=== PATIENT | female | born 1945 | race Caucasian/White ===

== ENCOUNTER 2017-02-01 11:03 | Outpatient (CLI) | payer OTHER ==
[2017-02-01 12:10] LABS: ALT (SGPT) 11 U/L (8-55); AST (SGOT) 17 U/L (5-34); Alkaline Phosphatase 86 U/L (40-150); Anion Gap 15 mmol/L (10-20); BUN (Urea Nitrogen) 16 mg/dL (9.8-20.1); Bilirubin, Total 0.8 mg/dL (0.2-1.2); Calc. Creatinine Clearance 0 mL/min (70-130); Calcium 10.6 mg/dL (7.8-10.44); Carbon Dioxide 24 mmol/L (23-31); Chloride 102 mmol/L (98-107); Estimated GFR-MDRD 48; Glucose 90 mg/dL (83-110); Potassium 4.2 mmol/L (3.5-5.1); Sodium 137 mmol/L (136-145)
[2017-02-01 13:26] LABS: #Eosinphils 0.2 thou/uL (0.0-0.7); #Lymphocytes 1.3 thou/uL (1.20-3.40); #Monocytes 0.6 thou/uL (0.11-0.59); #Neutrophils 10.2 thou/uL (1.40-6.50); %Basophils 0.3 % (0.0-1.0); %Eosinophils 1.2 % (0.0-10.0); %Lymphocytes 10.5 % (21.0-51.0); %Monocytes 4.9 % (0.0-10.0); Hemoglobin 12.9 g/dL (12.0-16.0); Mean Corpuscular HGB CONC 33.6 g/dL (32.0-36.0); Mean Corpuscular Hemoglobin 30.2 pg (27.0-31.0); Mean Corpuscular Volume 89.7 fl (81.0-99.0); Mean Platelet Volume 11.9 fL (7.4-10.4); RBC Distribution Width 11.9 % (11.5-14.5); Red Blood Cell (RBC) Count 4.27 mill/uL (4.20-5.40); White Blood Cell (WBC) Count 12.3 thou/uL (4.8-10.8)
== END 2017-02-01 11:04 | disposition home or self-care (01) ==
LOC: NAV LAB 11:03
PROVIDERS: ATTEND Family Medicine
DX: K57.92 Diverticulitis of intestine, part unspecified, without perforation or abscess without bleeding (principal)
CPT/HCPCS: 36415; 80053; 85025

== ENCOUNTER 2017-06-12 15:00 | Outpatient (CLI) | payer OTHER ==
--- NOTE | 2017-06-12 20:28 | RAD ---
FOUR VIEWS OF THE LEFT KNEE: 06/12/17 INDICATION: Left knee pain. COMPARISON: None. FINDINGS: There is mild osteophytosis involving the major compartments of the left knee. This is most prominen t within the patellofemoral compartment. No definite acute fracture or subluxation is evident. There is soft tissue swelling seen involving the anterior aspect of the left thigh which may reflect foca l area of contusion. Recommend correlation. IMPRESSION: 1. Mild osteoarthrosis of the left knee. 2. Soft tissue swelling involving the anterior aspect of the left thigh. POS: [facility]
== END 2017-06-12 15:01 | disposition home or self-care (01) ==
LOC: NAV RAD 15:00
PROVIDERS: ATTEND Family Medicine
DX: M25.562 Pain in left knee (principal); M17.12 Unilateral primary osteoarthritis, left knee

== ENCOUNTER 2018-01-07 11:27 | Emergency (ER) | payer MEDICARE | END 2018-01-07 12:32 | disposition home or self-care (01) | LOC: NAV ERS 11:27 | DX: R04.0 Epistaxis (principal); F41.9 Anxiety disorder, unspecified; H11.32 Conjunctival hemorrhage, left eye; E78.5 Hyperlipidemia, unspecified; I10 Essential (primary) hypertension; Z79.899 Other long term (current) drug therapy | CPT/HCPCS: 93005 ==

== ENCOUNTER 2018-02-12 21:48 | Emergency (ER) | payer MEDICARE ==
[2018-02-12 22:24] LABS: #Eosinphils 0.2 thou/uL (0.0-0.7); #Lymphocytes 1.2 thou/uL (1.20-3.40); #Monocytes 0.6 thou/uL (0.11-0.59); #Neutrophils 11.3 thou/uL (1.40-6.50); %Basophils 0.3 % (0.0-1.0); %Eosinophils 1.6 % (0.0-10.0); %Monocytes 4.8 % (0.0-10.0); %Neutrophils 84.4 % (42.0-75.0); Hemoglobin 12.1 g/dL (12.0-16.0); Mean Corpuscular HGB CONC 33.3 g/dL (32.0-36.0); Mean Corpuscular Hemoglobin 29.5 pg (27.0-31.0); Mean Corpuscular Volume 88.6 fL (78.0-98.0); Mean Platelet Volume 9.2 fL (7.4-10.4); Platelet Count 211 thou/uL (130-400); RBC Distribution Width 11.9 % (11.5-14.5); Red Blood Cell (RBC) Count 4.11 mill/uL (4.20-5.40); White Blood Cell (WBC) Count 13.3 thou/uL (4.8-10.8)
[2018-02-12 22:46] LABS: ALT (SGPT) 19 U/L (8-55); AST (SGOT) 21 U/L (5-34); Alkaline Phosphatase 99 U/L (40-150); Anion Gap 14 mmol/L (10-20); BUN (Urea Nitrogen) 21 mg/dL (9.8-20.1); Bilirubin, Total 0.4 mg/dL (0.2-1.2); Calc. Creatinine Clearance 0 mL/min (70-130); Calcium 9.7 mg/dL (7.8-10.44); Carbon Dioxide 25 mmol/L (23-31); Chloride 104 mmol/L (98-107); Estimated GFR-MDRD 60; Globulin 2.6 g/dL (2.4-3.5); Glucose 113 mg/dL (83-110); Potassium 3.6 mmol/L (3.5-5.1); Protein, Total 6.6 g/dL (6.0-8.3); Sodium 139 mmol/L (136-145)
== END 2018-02-12 23:00 | disposition home or self-care (01) ==
LOC: NAV ERS 21:48
DX: K92.1 Melena (principal); I10 Essential (primary) hypertension; E78.5 Hyperlipidemia, unspecified; Z79.899 Other long term (current) drug therapy; Z79.82 Long term (current) use of aspirin
CPT/HCPCS: 80053; 85025; 99283

== ENCOUNTER 2018-05-19 20:59 | Emergency (ER) | payer MEDICARE, OTHER ==
[2018-05-19] MEDS ORDERED: Acetaminophen 325 MG TAB ONE (21:43)
--- NOTE | 2018-05-19 22:44 | CT ---
HEAD CT: 05/19/2018 HISTORY: Trauma. COMPARISON: 09/20/2013 TECHNIQUE: Serial axial CT imaging at 5 mm intervals, from the vertex through the skull base, without contrast. FINDINGS: The visualized paranasal sinuses/mastoid air cells are well aerated. There is no displaced calvarial fracture. No intrathoracic hemorrhage, midline shift, mass effect, or ventricular enlargement. There is perive ntricular hypodensity and deep white matter hypodensity, evidence of small vessel disease, grossly un changed. IMPRESSION: No intracranial hemorrhage or displaced calvarial fracture. POS: [facility]
--- NOTE | 2018-05-19 22:46 | RAD ---
RIGHT FOOT THREE VIEWS: 05/19/2018 HISTORY: Trauma, Injury. Pain. COMPARISON: None. FINDINGS: There is moderate degenerative change at the fist metatarsophalangeal joint. No displaced fracture or evidence of dislocation seen. IMPRESSION: No acute findings. POS: [facility]
--- NOTE | 2018-05-19 22:59 | RAD ---
LEFT TIBIA AND FIBULA FRONTAL AND LATERAL IMAGIN05/19/2018 HISTORY: Trauma. Pain. COMPARISON: None. FINDINGS: No displaced fracture identified. IMPRESSION: No acute findings. POS: [facility]
== END 2018-05-19 23:32 | disposition home or self-care (01) ==
LOC: NAV ERS 20:59
DX: S06.0X0A Concussion without loss of consciousness, initial encounter (principal); S80.12XA Contusion of left lower leg, initial encounter; S90.31XA Contusion of right foot, initial encounter; E78.5 Hyperlipidemia, unspecified; I10 Essential (primary) hypertension; Z79.899 Other long term (current) drug therapy; V43.52XA Car driver injured in collision with other type car in traffic accident, initial encounter
CPT/HCPCS: 70450; 93005

== ENCOUNTER 2018-08-29 13:40 | Outpatient (CLI) | payer OTHER ==
--- NOTE | 2018-08-29 14:49 | RAD ---
UPRIGHT AP VIEW OF THE LEFT AND RIGHT KNEES: HISTORY: Pain. FINDINGS: Bilateral upright knee radiographs demonstrate mild narrowing of the medial and lateral compartment o f the right knee. There is mild narrowing of the medial compartment of the left knee. Mild to moder ate narrowing of the lateral compartment left knee. IMPRESSION: As above. POS: [facility]
--- NOTE | 2018-08-29 14:49 | RAD ---
TWO VIEWS LEFT KNEE: HISTORY: Pain. COMPARISON: None. FINDINGS: There is mild narrowing of the patellofemoral compartment. On the sunrise view, there is slight late ral subluxation of the patella. No significant joint fluid. IMPRESSION: Findings as above. POS: [facility]
== END 2018-08-29 13:41 | disposition home or self-care (01) ==
LOC: NAV RAD 13:40
PROVIDERS: ATTEND Orthopaedic Surgery
DX: M25.562 Pain in left knee (principal)
CPT/HCPCS: 73565

== ENCOUNTER 2019-07-29 12:15 | Outpatient (CLI) | payer MEDICARE, OTHER ==
--- NOTE | 2019-07-29 13:46 | RAD ---
LUMBAR SPINE FIVE VIEWS INCLUDING OBLIQUE VIEWS: HISTORY: Low back pain. FINDINGS: Multilevel disk osteophytosis and facet arthrosis. Grade 1 anterolisthesis of L4 on L5 of approximate ly 1.0 cm. IMPRESSION: 1. Grade 1 anterolisthesis of L4 on L5. 2. Generalized spondylosis. 3. No acute fracture or dislocation. POS: [facility]
--- NOTE | 2019-07-29 13:57 | RAD ---
THORACIC SPINE 3 VIEWS: Date: 07/29/19 HISTORY: Severe low back pain. FINDINGS: Vertebral bodies are normal in height. Degenerative osteophytes are present. Pedicles are intact. No compression fractures. IMPRESSION: Arthritic changes of the spine. No acute findings. POS: [facility]
== END 2019-07-29 12:16 | disposition home or self-care (01) ==
LOC: NAV RAD 12:15
PROVIDERS: ATTEND Family Medicine
DX: M54.9 Dorsalgia, unspecified (principal); M43.16 Spondylolisthesis, lumbar region; M47.816 Spondylosis without myelopathy or radiculopathy, lumbar region; M46.94 Unspecified inflammatory spondylopathy, thoracic region
CPT/HCPCS: 72072; 72110

== ENCOUNTER 2020-05-22 15:29 | Emergency (ER) | payer MEDICARE, OTHER ==
[2020-05-22 15:57] LABS: #Basophils 0.1 thou/uL (0.0-0.2); #Eosinphils 0.1 thou/uL (0.0-0.7); #Lymphocytes 1.1 thou/uL (1.20-3.40); #Monocytes 0.4 thou/uL (0.11-0.59); #Neutrophils 6.4 thou/uL (1.40-6.50); %Basophils 0.7 % (0.0-1.0); %Eosinophils 1.2 % (0.0-10.0); %Lymphocytes 13.6 % (21.0-51.0); %Monocytes 5.1 % (0.0-10.0); %Neutrophils 79.4 % (42.0-75.0); Hemoglobin 12.1 g/dL (12.0-16.0); Mean Corpuscular HGB CONC 31.2 g/dL (32.0-36.0); Mean Corpuscular Volume 89.5 fL (78.0-98.0); Mean Platelet Volume 11.8 fL (7.4-10.4); Platelet Count 215 thou/uL (130-400); RBC Distribution Width 12.3 % (11.5-14.5); Red Blood Cell (RBC) Count 4.31 mill/uL (4.20-5.40); White Blood Cell (WBC) Count 8.1 thou/uL (4.8-10.8)
[2020-05-22] MEDS ORDERED: Sodium Chloride 0.9% 500 ML ONE (16:06)
--- NOTE | 2020-05-22 16:10 | RAD ---
XR Chest 1 View Portable History: Dyspnea Comparison: Radiograph 2017 Findings: Lungs are mildly hyperinflated. No confluent airspace consolidation, pneumothorax or effusi on. Likely a pannus fold creating a linear lucency in the upper abdomen nearly abutting the diaphragms and much less likely free intraperitoneal gas. Moderate vascular calcifications of the aorta. No acute osseous abnormality. Impression: 1. No acute intrathoracic abnormality. 2. Likely Mach band artifact from pannus fold creating a linear lucency nearly approximating the diap hragms. If the patient is expressing abdominal pain, upright abdominal radiographs would be recommended to evaluate for free air, although this is not felt likely.
[2020-05-22 16:20] LABS: ALT (SGPT) 11 U/L (8-55); AST (SGOT) 18 U/L (5-34); Albumin 3.9 g/dL (3.4-4.8); Alkaline Phosphatase 119 U/L (40-110); Anion Gap 17 mmol/L (10-20); BUN (Urea Nitrogen) 12 mg/dL (9.8-20.1); Bilirubin, Total 0.7 mg/dL (0.2-1.2); CK (CPK) 66 U/L (29-168); Calc. Creatinine Clearance 0 mL/min (70-130); Carbon Dioxide 22 mmol/L (23-31); Chloride 101 mmol/L (98-107); Estimated GFR-MDRD 58; Globulin 2.9 g/dL (2.4-3.5); Glucose 95 mg/dL (83-110); Protein, Total 6.8 g/dL (6.0-8.3); Sodium 136 mmol/L (136-145)
--- NOTE | 2020-05-22 16:42 | CT ---
CT Brain WO Con History: Altered mental status Comparison: CT brain 2018 Findings: No acute hemorrhage. Moderate to severe periventricular and deep white matter microangiopat hic changes. No midline shift. No mass effect. Calvarium is intact. Paranasal sinuses and mastoids are relatively clear. Impression: Chronic findings. No acute intracranial abnormality.
[2020-05-22 17:29] LABS: Bilirubin Negative (Negative); Blood, Urine Trace (Negative); Clarity Clear (Clear); Glucose, Urine (Dipstick) Negative (Negative); Ketone, Urine Negative (Negative); Leukocyte Large (Negative); Nitrite Negative (Negative); Protein, Urine (Dipstick) Negative (Neg-Trace); Specific Gravity, Urine 1.015 (1.005-1.030); Urobilinogen 0.2 mg/dL (Less than 2); pH, Urine 7.5 (5.0-9.0)
[2020-05-22 17:37] LABS: RBC/HPF 0-3 HPF (0-3); Squamous Epithelial 0-3 HPF (0-3)
[2020-05-22] MEDS ORDERED: Cipro 250 MG TAB ONE (17:47)
== END 2020-05-22 17:56 | disposition home or self-care (01) ==
LOC: NAV ERS 15:29
DX: R42 Dizziness and giddiness (principal); N39.0 Urinary tract infection, site not specified; E78.5 Hyperlipidemia, unspecified; E78.00 Pure hypercholesterolemia, unspecified; I10 Essential (primary) hypertension; Z79.899 Other long term (current) drug therapy; Z79.1 Long term (current) use of non-steroidal anti-inflammatories (NSAID)
CPT/HCPCS: 70450; 71045; 80053; 81003; 81015; 82550; 84484; 85025; 87086; 93005; J7030

== ENCOUNTER 2022-01-06 22:49 | Emergency (ER) | payer MEDICARE ==
[2022-01-06 23:17] LABS: Clarity Cloudy (Clear); Leukocyte Moderate (Negative); Nitrite Negative (Negative); Specific Gravity, Urine 1.015 (1.005-1.030); pH, Urine 6.5 (5.0-9.0)
[2022-01-06 23:18] LABS: Bilirubin Negative (Negative); Blood, Urine Small (Negative); Glucose, Urine (Dipstick) Negative (Negative); Ketone, Urine Negative (Negative); Protein, Urine (Dipstick) 30 mg/dL (Neg-Trace); Urobilinogen 0.2 mg/dL (Less than 2)
[2022-01-06 23:23] LABS: Squamous Epithelial 0-3 HPF (0-3); WBC/HPF Greater than 50 HPF (0-3)
[2022-01-06 23:24] LABS: Bacteria/HPF 1+ HPF (None Seen); Mucous/LPF 1+ LPF (<2+)
[2022-01-06] MEDS ORDERED: Cephalexin 250 MG CAP ONE (23:33)
== END 2022-01-06 23:40 | disposition home or self-care (01) ==
LOC: NAV ERS 22:49
DX: N39.0 Urinary tract infection, site not specified (principal); I10 Essential (primary) hypertension; Z87.891 Personal history of nicotine dependence; Z79.899 Other long term (current) drug therapy
CPT/HCPCS: 81003; 81015; 87086; 99283

== ENCOUNTER 2022-11-21 22:52 | Emergency (ER) | payer MEDICARE | END 2022-11-21 23:45 | disposition home or self-care (01) | LOC: NAV ERS 22:52 | DX: H92.21 Otorrhagia, right ear (principal); H92.01 Otalgia, right ear; I10 Essential (primary) hypertension; E78.00 Pure hypercholesterolemia, unspecified; Z87.891 Personal history of nicotine dependence; Z79.899 Other long term (current) drug therapy | CPT/HCPCS: 99282 ==

== ENCOUNTER 2023-09-17 18:02 | Outpatient (CLI) | payer MEDICARE | END 2023-09-17 18:03 | disposition home or self-care (01) | LOC: NAV RAD 18:02 | PROVIDERS: ATTEND Nurse Practitioner Family | DX: M54.50 Low back pain, unspecified (principal); M51.36 Other intervertebral disc degeneration, lumbar region; M47.816 Spondylosis without myelopathy or radiculopathy, lumbar region; M43.16 Spondylolisthesis, lumbar region | CPT/HCPCS: 72100; 72170 ==